=== PATIENT | male | born 1985 | race Caucasian/White ===

== ENCOUNTER 2017-11-21 07:34 | Emergency (ER) | payer OTHER ==
[2017-11-21] MEDS ORDERED: LIDOCAINE PATCH 5% TOP PRN (08:26)
[2017-11-21] MEDS ORDERED: KETOROLAC 60 MG/2 ML VIAL IVP STA (08:26)
--- NOTE | 2017-11-21 08:30 | ED Physician Documentation ---
History of Present Illness - Stated complaint Stated Complaint: MID BACK PX - Chief complaint Chief Complaint: Back Pain - Additonal information Additional information: hx from pt 32 male [place] in good health recently no fever cough NVD no travel no leg swelling no dental work or surgery had a steroid shot in his L ankle yesterday but no other IV IM meds drugs awoke 5 AM feeling fine about 645 started to develop pleuritic mid back pain quite severe a bit soa hurts to breathe no abd pain no CP no urinary sx - no dysuria hematuria or incontin no leg numbness or weakness no saddle anesthesia no trauma Review of Systems Constitutional: denies: Fever, Chills Throat: denies: Sore throat Cardiac: denies: Chest pain / pressure Respiratory: reports: Dyspnea. denies: Cough GI: denies: Abdominal Pain, Nausea, Vomiting : denies: Dysuria, Incontinent, Hematuria Musculoskeletal: reports: Back pain Neurologic: denies: Generalized weakness, Focal weakness, Numbness Endocrine: denies: Easy bruising / bleeding Immunocompromised: denies: Immunocompromised PD PAST MEDICAL HISTORY - Past Medical History Past Medical History: No - Past Surgical History Past Surgical History: No - Present Medications Home Medications: Ambulatory Orders Medication Instructions Recorded Confirmed Carisoprodol [Soma] 350 mg PO Q8H PRN #15 tablet 11/21/17 Ibuprofen [Motrin] 800 mg PO Q8H PRN #30 tablet 11/21/17 Lidocaine Patch 5% [Lidoderm Patch] 1 each TOP DAILY PRN #10 patch 11/21/17 - Allergies Allergies/Adverse Reactions: Allergies Allergy/AdvReac Type Severity Reaction Status Date / Time No Known Drug Allergies Allergy Verified 11/21/17 08:00 - Social History Does the pt smoke?: No Smoking Status: Never smoker Does the pt drink ETOH?: No Does the pt have substance abuse?: No - Immunizations Immunizations are current?: Yes - POLST Patient has POLST: No PD ED PE NORMAL - Vitals Vital signs reviewed: Yes - General General: Alert and oriented X 3, Other (very uncomfortable and restless) - HEENT HEENT: PERRL - Neck Neck: Supple, no meningeal sign - Cardiac Cardiac: RRR - Respiratory Respiratory: No respiratory distress, Clear bilaterally, Other (shallow 2/2 pain) - Abdomen Abdomen: Soft, Non tender, Other (no pulsatile mass) - Back Back: No spinal TTP, Other (no rash, no sig TTP, hurts but my palpation jennings not really affect, some pain with ROM but mostly with breathing) - Derm Derm: Normal color - Extremities Extremities: Other (ankle injection site s erythema TTP swelling) - Neuro Neuro: Alert and oriented X 3, No motor deficit, No sensory deficit, Other (denies saddle anesthesia, hip flexion knee ext foot dorsi plantar and great toe ext 5/5, neg SLR but back hurts more with R SLR, no clonus, nl sensation) Results - Vitals Vitals: Vital Signs - 24 hr 11/21/17 11/21/17 07:58 14:20 Temperature 36.3 C L Heart Rate 62 51 L Respiratory 14 18 Rate Blood Pressure 143/84 H 149/102 H O2 Saturation 100 98 Oxygen O2 Source Room air - Labs Labs: Laboratory Tests 11/21/17 11/21/17 11/21/17 07:54 08:37 08:37 WBC 8.1 RBC 5.04 Hgb 16.1 Hct 45.6 MCV 90.4 MCH 32.0 H MCHC 35.4 RDW 12.6 Plt Count 260 MPV 7.6 Neut # (Auto) 6.2 Lymph # (Auto) 1.2 L [place] # (Auto) 0.6 Eos # (Auto) 0.0 Baso # (Auto) 0.0 Absolute Nucleated RBC 0.01 Nucleated RBC % 0.1 D-Dimer < 200.0 L Sodium Potassium Chloride Carbon Dioxide Anion Gap BUN Creatinine Estimated GFR (MDRD) Glucose Calcium Total Bilirubin AST ALT Alkaline Phosphatase Total Protein Albumin Globulin Albumin/Globulin Ratio Lipase Urine Color YELLOW Urine Clarity CLEAR Urine pH 6.5 Ur Specific [place] <=1.005 Urine Protein NEGATIVE Urine Glucose (UA) NEGATIVE Urine Ketones NEGATIVE Urine Occult Blood NEGATIVE Urine Nitrite NEGATIVE Urine Bilirubin NEGATIVE Urine Urobilinogen 0.2 (NORMAL) Ur Leukocyte Esterase NEGATIVE Ur Microscopic Review NOT INDICATED Urine Culture Comments NOT INDICATED 11/21/17 08:37 WBC RBC Hgb Hct MCV MCH MCHC RDW Plt Count MPV Neut # (Auto) Lymph # (Auto) [place] # (Auto) Eos # (Auto) Baso # (Auto) Absolute Nucleated RBC Nucleated RBC % D-Dimer Sodium 136 Potassium 4.2 Chloride 102 Carbon Dioxide 28 Anion Gap 6.0 BUN 15 Creatinine 1.1 Estimated GFR (MDRD) 79 L Glucose 90 Calcium 9.3 Total Bilirubin 2.0 H AST 36 ALT 33 Alkaline Phosphatase 76 Total Protein 7.7 Albumin 4.4 Globulin 3.3 Albumin/Globulin Ratio 1.3 Lipase 25 Urine Color Urine Clarity Urine pH Ur Specific [place] Urine Protein Urine Glucose (UA) Urine Ketones Urine Occult Blood Urine Nitrite Urine Bilirubin Urine Urobilinogen Ur Leukocyte Esterase Ur Microscopic Review Urine Culture Comments - Rads (name of study) CTA chest abd pelvis Radiology: See rad report (splenic artery dissection, no free rupture) PD MEDICAL DECISION MAKING - ED course ED course: pt has remained hemodynamically stable but potential for rupture with catastrophic internal bleeding [place] [facility] [place] and potential for rupture merits tx by [facility] - Sepsis Event Vital Signs: Vital Signs - 24 hr 11/21/17 11/21/17 07:58 14:20 Temperature 36.3 C L Heart Rate 62 51 L Respiratory 14 18 Rate Blood Pressure 143/84 H 149/102 H O2 Saturation 100 98 Oxygen O2 Source Room air Departure - Departure Disposition: 02 Transfer Acute Care 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
[2017-11-21 08:48] LABS: BILIRUBIN,URINE NEGATIVE (NEGATIVE); GLUCOSE, URINE (UA) NEGATIVE (NEGATIVE); KETONES,URINE (UA) NEGATIVE (NEGATIVE); LEUKOCYTE ESTERASE, URINE NEGATIVE (NEGATIVE); NITRITE,URINE NEGATIVE (NEGATIVE); OCCULT BLOOD,URINE NEGATIVE (NEGATIVE); PH,URINE 6.5 PH (5.0-7.5); PROTEIN,URINE NEGATIVE (NEGATIVE); UROBILINOGEN,URINE 0.2 (NORMAL) E.U./dL (NORMAL)
[2017-11-21 08:49] LABS: BASOPHILS % (AUTO) 0.6 %; EOSINOPHILS % (AUTO) 0.6 %; HGB - HEMOGLOBIN 16.1 g/dL (14.0-18.0); LYMPHOCYTES # (AUTO) 1.2 10^3/uL (1.5-3.5); LYMPHOCYTES % (AUTO) 14.4 %; MEAN CORPUSCULAR HGB CONC 35.4 g/dL (32.0-36.0); MEAN CORPUSCULAR VOLUME 90.4 fL (80.0-94.0); MEAN PLATELET VOLUME 7.6 fL (7.4-11.4); MONOCYTES # (AUTO) 0.6 10^3/uL (0.0-1.0); MONOCYTES % (AUTO) 7.7 %; NEUTROPHILS # (AUTO) 6.2 10^3/uL (1.5-6.6); NEUTROPHILS % (AUTO) 76.7 %; PLT - PLATELET COUNT 260 10^3/uL (130-450); RED BLOOD COUNT 5.04 10^6/uL (4.70-6.10); RED CELL DISTRIBUTION WIDTH 12.6 % (12.0-15.0); WHITE BLOOD COUNT 8.1 x10^3/uL (4.8-10.8)
[2017-11-21 08:52] LABS: CLARITY,URINE CLEAR (CLEAR)
--- NOTE | 2017-11-21 08:59 | XRAY Report ---
Reason: pleurisy Procedure Date: 11/21/2017 Accession Number: [id number] / [id number] Procedure: XR - Chest 2 View X-Ray CPT Code: 45561 FULL RESULT: EXAM: CHEST RADIOGRAPHY EXAM DATE: 11/21/2017 08:48 AM. CLINICAL HISTORY: Pleurisy. Mid back muscle spasms. COMPARISON: None. TECHNIQUE: 2 views. FINDINGS: Lungs/Pleura: No focal opacities evident. No pleural effusion. No pneumothorax. Normal volumes. Mediastinum: Heart and mediastinal contours are unremarkable. Other: Bones are grossly unremarkable. IMPRESSION: Normal 2-view chest radiography. [facility]
[2017-11-21 09:03] LABS: ALBUMIN 4.4 g/dL (3.2-5.5); ALBUMIN/GLOBULIN RATIO 1.3 (1.0-2.2); CALCIUM 9.3 mg/dL (8.5-10.3); CREATININE 1.1 mg/dL (0.6-1.2); TOTAL PROTEIN 7.7 g/dL (6.7-8.2)
[2017-11-21] MEDS ORDERED: oxyCODONE 5 MG TABLET PO STA (09:25)
[2017-11-21] MEDS ORDERED: IOPAMIDOL-300 100 ML VIAL ONE (09:55)
[2017-11-21] MEDS ORDERED: IOPAMIDOL-300 100 ML VIAL IVP ONE (10:11)
--- NOTE | 2017-11-21 11:03 | CT Report ---
Reason: SEVERE MID BACK PAIN Procedure Date: 11/21/2017 Accession Number: [id number] / [id number] Procedure: CT - Abdomen/Pelvis Angio CPT Code: FULL RESULT: EXAM: CT ANGIOGRAM ABDOMEN AND PELVIS WITH CONTRAST EXAM DATE: 11/21/2017 10:17 AM. CLINICAL HISTORY: SEVERE MID BACK PAIN. COMPARISONS: None. TECHNIQUE: Routine helical CT angiogram imaging was performed through the abdomen and pelvis in the arterial phase. IV contrast: ISOVUE 300 100mL. Enteric contrast: No. Reconstructions: Coronal, sagittal, and 3D MIP reconstructions. In accordance with CT protocol optimization, one or more of the following dose reduction techniques were utilized for this exam: automated exposure control, adjustment of mA and/or KV based on patient size, or use of iterative reconstructive technique. FINDINGS: Vasculature: There is a focal dissection of the splenic artery extending from its origin approximately 1.9 cm distally. The vessel is opacified distally. No aneurysmal dilatation or dissection of the abdominal aorta or iliac arteries. The SMA is patent. The [place] is opacified. The left and right renal arteries are patent. Lung Bases: Normal. Abdominal Solid Organs: Normal. The liver, spleen, pancreas, adrenal glands, gallbladder and kidneys are normal in size and demonstrate no masses or abnormal enhancement. Peritoneal Cavity: Normal. No free fluid, free air, or acute inflammatory process. Pelvic Organs: Normal. The bladder and visualized pelvic organs are within normal limits. Bones: Bilateral pars defects at L5 with grade 2 anterior listhesis of L5 on S1. There is a small anterior superior corner fracture of the T11 vertebral body. The fracture plane does not extend posteriorly. Other: None. IMPRESSION: 1. Focal dissection of the splenic artery extending approximately 1.9 cm distally from its origin. The vessel is opacified distally. 2. No aneurysmal dilatation or dissection of the abdominal aorta or iliac arteries. The SMA and renal arteries are patent. The [place] is opacified. 3. Bilateral pars defects at L5 with grade 2 anterior listhesis of L5 on S1. 4. Small superior anterior corner fracture of the T11 vertebral body which appears chronic in nature. [facility]
--- NOTE | 2017-11-21 11:06 | CT Report ---
Reason: severe pleuritic mid back pain Procedure Date: 11/21/2017 Accession Number: [id number] / [id number] Procedure: CT - Chest Angio (AORTA) CPT Code: FULL RESULT: EXAM: CT ANGIOGRAM CHEST, ABDOMEN AND PELVIS EXAM DATE: 11/21/2017 10:17 AM. CLINICAL HISTORY: Severe pleuritic mid back pain. COMPARISONS: ABDOMEN/PELVIS ANGIO 11/21/2017 10:08 AM. TECHNIQUE: Routine axial helical CT angiographic imaging was performed through the chest, abdomen, and pelvis. IV Contrast: ISOVUE 300 100 mL. Reconstructions: Coronal, sagittal, and 3D MIP reconstructions of the aorta. In accordance with CT protocol optimization, one or more of the following dose reduction techniques were utilized for this exam: automated exposure control, adjustment of mA and/or KV based on patient size, or use of iterative reconstructive technique. FINDINGS: Vascular Structures: Normal. No aneurysm, dissection, or significant atherosclerotic disease of the thoracic aorta, abdominal aorta, or iliac arteries. The visualized pulmonary, mesenteric, and solid organ vascular structures are also within normal limits. Primary right renal artery with 2 smaller accessory renal arteries. Single left renal artery with early bifurcation. All of the renal arteries are widely patent. Lungs/Pleura: No consolidation or edema. No effusions or pneumothorax. No endobronchial lesions. 3 mm left upper lobe nodule on image 22. Mediastinum: Normal. No cardiac enlargement or adenopathy. Abdominal Organs: Normal. The liver, spleen, pancreas, adrenal glands, gallbladder and kidneys are normal in size and demonstrate no masses or abnormal enhancement. Peritoneal Cavity: Normal. No free fluid, free air, or acute inflammatory process. Normal appendix. Mild wall thickness prominence of the sigmoid colon and an incomplete distended segment of bowel. No significant inflammation adjacent to the colon. Pelvic Organs: Normal. The bladder and visualized pelvic organs are within normal limits. Bones: Moderate L5-S1 degenerative disk disease with grade 2 1.2 cm L5 on S1 spondylolisthesis. No osteoblastic or osteolytic lesions. Other: None. IMPRESSION: 1. Normal chest, abdomen and pelvis CT angiogram. No aneurysm or dissection. 2. No central pulmonary emboli. 3. No acute pulmonary process. 3 mm left upper lobe nodule. 4. No cardiac enlargement or significant coronary artery disease or pericardial effusion. No adenopathy. 4. No definite acute inflammatory process in the chest, abdomen or pelvis. Incompletely distended portion of the sigmoid colon demonstrates mild wall thickening which is likely exacerbated by incomplete distention. No significant adjacent inflammation. In the absence of abnormal labs or GI symptoms, findings are of questionable significance. Correlate clinically. 5. Grade 2 1.2 cm L5 on S1 spondylolisthesis. Correlate for the area of pain. [facility] ADDENDUM: 11/21/17 13:38 Short proximal splenic artery dissection originating about the 2 cm from the origin. Remaining vessel opacifies normally.
[2017-11-21 14:31] VITALS: BP 149/102
== END 2017-11-21 14:20 | disposition short-term general hospital (02) ==
LOC: ED 07:34
DX: I77.79 Dissection of other specified artery (principal)
CPT/HCPCS: 36415; 71046; 71275; 74174; 80053; 81003; 83690; 85025; 85379; 96374; 99283; 99284; A9270; Q9967; 81001; 87086

== ENCOUNTER 2017-12-12 07:20 | Outpatient (CLI) | payer OTHER ==
[2017-12-12] MEDS ORDERED: IOPAMIDOL-300 100 ML VIAL ONE (07:24)
[2017-12-12] MEDS ORDERED: IOPAMIDOL-300 100 ML VIAL IVP ONE (14:40)
--- NOTE | 2017-12-12 16:20 | CT Report ---
Reason: SPLENIC ARTERY DISSECTION Procedure Date: 12/12/2017 Accession Number: [id number] / [id number] Procedure: CT - Abdomen Angio CPT Code: FULL RESULT: EXAM: CT ANGIOGRAM ABDOMEN AND PELVIS WITH CONTRAST EXAM DATE: 12/12/2017 07:49 AM. CLINICAL HISTORY: SPLENIC ARTERY DISSECTION. COMPARISONS: CTA of the abdomen dated 11/21/2017. TECHNIQUE: Routine helical CT angiogram imaging was performed through the abdomen and pelvis in the arterial phase. IV contrast: ISOVUE 300 100mL. Enteric contrast: No. Reconstructions: Coronal, sagittal, and 3D MIP reconstructions. In accordance with CT protocol optimization, one or more of the following dose reduction techniques were utilized for this exam: automated exposure control, adjustment of mA and/or KV based on patient size, or use of iterative reconstructive technique. FINDINGS: Vasculature: The previously seen dissection and the proximal aspect of the splenic artery extending 1.9 cm distally is not well visualized on today's examination. No aneurysmal dilatation of the splenic artery. The abdominal aorta and other mesenteric arteries are within normal limits. 3 right and one left renal artery are well opacified and patent. The [place] is opacified. Lung Bases: Normal. Abdominal Solid Organs: No evidence of splenic infarction. The liver, pancreas, adrenal glands, gallbladder and kidneys are normal in size and demonstrate no masses or abnormal enhancement. Peritoneal Cavity: Normal. No free fluid, free air, or acute inflammatory process. Pelvic Organs: The bladder and visualized pelvic organs are within normal limits. Bones: Grade 1 anterior listhesis of L5 on S1 with bilateral pars defects at L5. Other: None. IMPRESSION: 1. The previously seen dissection of the splenic artery proximally is not visualized on today's examination. This may be due to differences in technique and slice acquisition. No evidence of splenic infarction. 3. The remainder of the vascular structures are unremarkable. [facility]
== END 2017-12-12 07:21 | disposition home or self-care (01) ==
LOC: DI 07:20
PROVIDERS: ATTEND General Practice
DX: I77.79 Dissection of other specified artery (principal)
CPT/HCPCS: 74175; Q9967